=== PATIENT | male | born 1960 | race Caucasian/White ===

== ENCOUNTER 2024-03-23 12:09 | Outpatient (CLI) | payer BC, SELFPAY ==
--- NOTE | ~2024-03-23 | MR_ITS ---
EXAMINATION: MR abdomen wo/w con DATE: 03/23/2024 13:21 INDICATION: Right kidney mass. TECHNIQUE: Magnetic resonance imaging (MRI) of the abdomen was performed without and with 20 mL Multi Allen intravenous contrast. COMPARISON: None. FINDINGS: There is a 6 mm cyst in the liver. The gallbladder, spleen, pancreas, and adrenal glands are normal. There are cysts and hemorrhagic cysts in the kidneys measuring up to 2.1 cm on the left. There are no dilated loops of bowel. There are no pathologically enlarged lymph nodes. There is no free intraperi toneal fluid. IMPRESSION: 1. Benign cysts in the kidneys. Reviewed, dictated and finalized at location A.
== END 2024-03-23 12:10 | disposition home or self-care (01) ==
PROVIDERS: Visit Provider Physician Assistant
DX: N28.89 Other specified disorders of kidney and ureter (principal); N28.1 Cyst of kidney, acquired
CPT/HCPCS: 74183; A9577